=== PATIENT | female | born 1975 | race Caucasian/White ===

== ENCOUNTER → 2021-09-21 16:22 | Outpatient (CLI) | payer BC, SELFPAY ==
[2021-09-21 17:01] LABS: COVID19 -Nasal RAPID Negative (Negative)
== END ==
PROVIDERS: PCP Physician Assistant Medical; Visit Provider Obstetrics & Gynecology
DX: Z01.812 Encounter for preprocedural laboratory examination (principal); Z20.822 Contact with and (suspected) exposure to COVID-19
CPT/HCPCS: 87635

== ENCOUNTER 2021-09-22 09:46 | Day surgery (SDC) | payer BC, SELFPAY ==
[2021-09-17 14:16] VITALS: BMI 29.9
--- NOTE | 2021-09-22 | PATH_ITS ---
[facility] Accession Number: [id number] . 01 Material submitted: . endometrium - ENDOMETRIAL CURETTINGS . 02 Diagnosis: A. Endometrium, Curettage: Mixed phase endometrium (weakly proliferative and late secretory) in association with endometrial polyp(s), with breakdown and reactive surface changes. Background consisting of superficial detached strips of late secretory phase endometrium with extensive breakdown and reactive changes. No evidence of endometrioid intraepithelial neoplasia or malignancy. MRV 09/28/2021 1606 Local . 02 Electronically signed: . Tenisha Estes MD, Pathologist NPI- [id number] . 01 Gross description: . ENDOMETRIAL CURETTINGS: Received in formalin are minute fragments of mucoid and hemorrhagic material measuring 0.6 x 0.6 x 0.3 cm in aggregate. Submitted in toto in 1 cassette. /LUIS 09/23/2021 1909 Local . 02 Pathologist provided ICD-10: N94.89 . 02 CPT . 697542 Performed at: 01 [facility] [address], [place], [place] [id number] MD Derick Rainey MD Phone: [phone] Performed at: 02 [facility] [address] [place], [place] [id number] MD Mitra Rider MD Phone: [phone]
[2021-09-22 10:08] VITALS: BP 145/95; PULSE 90; RESP 16; TEMP 36.9; O2SAT 100; BMI 29.9
[2021-09-22] MEDS: LACTATED RINGERS 1,000 ML 42 ML IV (10:24)
[2021-09-22] MEDS: ACETAMINOPHEN 325 MG TABLET 975 MG PO (10:27)
--- NOTE | 2021-09-22 13:20 | PM.HP.1 ---
History of Present Illness History of Present Illness Date Patient Seen: 09/22/21 Time Patient Seen: 13:20 Chief complaint: D&C HYSTEROSCOPY W/NOVASURE ABLATION Narrative: Patient is a 46-year-old 1 para 0102 who presents for a D&C and NovaSure endometrial ablation due to dysfunctional uterine bleeding. Patient History Medical History (Updated 09/07/21 @ 22:13 by Madie Gold) Acquired hypothyroidism (~2005) Rosacea (~2019) Surgical History (Updated 09/07/21 @ 22:13 by Madie Gold) History of section (~03/15/07) [place] teeth extracted Family & Social History Family History (Updated 09/07/21 @ 22:15 by Madie Gold) Father Diabetes mellitus Mother Diabetes mellitus Sister Thyroid disease Social History: household members spouse Tobacco & Substance use: Smoking Status Never smoker alcohol intake never Substance Use Type does not use Meds Home Medications and Allergies Home Medications Medication Instructions Recorded Confirmed Type levothyroxine 125 mcg tablet 125 mcg PO DAILY 08/31/21 09/22/21 History liothyronine 5 mcg tablet 10 mcg PO DAILY 08/31/21 09/22/21 History Allergies Allergy/AdvReac Type Severity Reaction Status Date / Time No Known Drug Allergies Allergy Verified 09/22/21 10:06 Exam Vital Signs (past 8 hours): - 09/22/21 10:08 Temperature 98.4 F Pulse Rate 90 Respiratory Rate 16 Blood Pressure 145/95 H Pulse Oximetry 100 Oxygen Delivery Method Room Air Narrative Exam Narrative: HEENT: No thyromegaly, no anterior cervical or supraclavicular lymphadenopathy. Lungs:Clear to auscultation bilaterally, no wheezes. Cardiovascular: Regular rate and rhythm, no murmurs, rubs, or gallops. Abdomen: Well-healed Pfannenstiel scars. No hepatosplenomegaly. No masses palpable. External genitalia: Normal Vagina: Normal Cervix: Normal Bimanual exam: 7 Week size uterus. Mobile. No adnexal masses or tenderness Extremities: No edema Assessment & Plan Assessment & Plan narrative: Assessment: 46-year-old 1 para 0102 with dysfunctional uterine bleeding Plan: D&C with NovaSure endometrial ablation The risks, benefits, and alternatives to the procedure were explained to the patient. The risks including bleeding, infection, and uterine perforation. She understands these risks and agrees to proceed. A full par Q was held and consent form was signed. COVID-19 COVID-19 status: Negative Result date/Date tested (Pos, Neg/Pending): 09/21/21 Time Spent With Patient Time with patient: less than 30 minutes Critical Care time: I spent a total of [] minutes of critical care time on this patient's care today; this time is exclusive of procedural time.
--- NOTE | 2021-09-22 13:26 | PM.PREOP ---
Pre-operative Note COVID-19 COVID-19 status: Negative Result date/Date tested (Pos, Neg/Pending): 09/21/21 Interval Note History & Physical reviewed/Exam performed by Physician: Yes Changes to H&P: No H&P completed within 30 days and has changed as indicated here:: 09/22/21
--- NOTE | 2021-09-22 13:36 | SUR.OPER ---
Lithotomy on padded OR bed, head on pillow, arms secured on padded arm boards at <90 degrees abduction. Legs secured in padded yellow fins stirrups.
--- NOTE | 2021-09-22 14:05 | P.OP_ITS ---
Operative Date/Time/Diagnoses Date of procedure: 09/22/21 Time of procedure: 14:05 Pre-op diagnosis: Dysfunctional uterine bleeding Post-op diagnosis: same Procedure & Clinicians Procedure: Procedures Operation Date: 09/22/21 11:15 Actual Procedure Side Surgeon p D&Andrea w/ Novasure Ablation Carolyn Wilde MD Indications: Dysfunctional uterine bleeding Surgeon: Carolyn Wilde Anesthesia Type: General (LMA) Operative Notes Findings: 7 week size anteverted uterus Both fallopian ostia observed Large amount of endometrial curettings Closure Type: not applicable Specimen(s): endometrial curettings Estimated blood loss (mL): 10 Blood products transfused: none Procedure in detail: After informed consent was obtained, the patient was taken to the operating room where she was placed in the dorsal supine position. After adequate LMA general anesthesia was achieved, she was placed in the dorsal lithotomy position, and prepped and draped in the usual sterile fashion. A time-out was performed. A bivalve speculum was placed into the vagina and the anterior lip of the cervix was grasped with a single-tooth tenaculum. Cervical os was sequentially dilated until the hysteroscope could pass easily into the endometrial cavity. Both f allopian tube ostia were observed. There was a thickened endometrial lining. There were no polyps or fibroids visible. The hysteroscope was removed. Sharp curettage was performed yielding a large amount of endometrial curettings. The uterus was measured from the internal os to the fundus and measured 4 cm. This was set on the NovaSure catheter and the generator. NovaSure catheter passed easily into the endometrial cavity and was opened. The cavity width was 2 cm. This indicated a power of 44 w. The cervix was capped, the cavity assessment was performed and passed. The cycle was initiated and lasted 98 seconds. At the completion of the cycle the NovaSure catheter was closed, the cervix was on capped, the catheter was removed without difficulty. Single-tooth tenaculum was removed from the anterior lip of the cervix. The bivalve speculum was removed from the vagina. Sponge, lap, and instrument counts were correct x2. The patient tolerated the procedure well, and was taken to PACU in stable condition. Complications: none Post-operative Condition: stable Disposition: PACU Plan for aftercare: Home after recovery
[2021-09-22 14:07] VITALS: BP 133/98; PULSE 81; RESP 13; TEMP 36.3; O2SAT 98
--- NOTE | 2021-09-22 14:09 | SUR.OPER ---
CAVITY LENGTH 4 CAVITY WIDTH 2 POWER 44 TOTAL TIME 98 SECONDS
[2021-09-22 14:12] VITALS: BP 127/93; PULSE 81; RESP 13; O2SAT 98
[2021-09-22 14:17] VITALS: BP 130/92; PULSE 76; RESP 17; O2SAT 98
[2021-09-22 14:36] VITALS: BP 139/88; PULSE 67; RESP 14; TEMP 36.6; O2SAT 98
== END 2021-09-22 14:55 | disposition home or self-care (01) ==
PROVIDERS: PCP Physician Assistant Medical; Referring Provider Obstetrics & Gynecology; Visit Provider Obstetrics & Gynecology
PROC: 0U5B8ZZ Destruction of Endometrium, Via Natural or Artificial Opening Endoscopic (ICD-10-PCS; CPT 58563; principal; 2021-09-22 11:15)
DX: N84.0 Polyp of corpus uteri (principal); E03.9 Hypothyroidism, unspecified; N94.89 Other specified conditions associated with female genital organs and menstrual cycle
CPT/HCPCS: 58563; J1100; J1885; J2250; J2405; J2704; J3010

== ENCOUNTER → 2024-07-18 11:35 | Outpatient (CLI) | payer BC, SELFPAY ==
[2024-07-18 13:35] LABS: Cancer Antigen 125 74.8 U/mL (0-35)
== END ==
LOC: LAB 11:36
PROVIDERS: PCP Physician Assistant Medical; Referring Provider Specialist; Visit Provider Specialist
DX: N83.291 Other ovarian cyst, right side (principal)
CPT/HCPCS: 36415; 86304; 86305

== ENCOUNTER → 2024-09-06 11:50 | Outpatient (CLI) | payer BC, SELFPAY ==
[2024-09-06 13:59] LABS: Cancer Antigen 125 9.7 U/mL (0-35)
== END ==
LOC: LAB 11:52
PROVIDERS: PCP Physician Assistant Medical; Referring Provider Obstetrics & Gynecology; Visit Provider Obstetrics & Gynecology
DX: N83.291 Other ovarian cyst, right side (principal)
CPT/HCPCS: 36415; 86304